=== PATIENT | male | born 1965 | race Caucasian/White ===

== ENCOUNTER 2018-10-02 15:48 | Emergency (ER) | payer BC ==
[2018-10-02 16:29] VITALS: BP 153/93
--- NOTE | 2018-10-02 17:08 | UC ---
Abdominal Pain Male HPI - HPI Summary HPI Summary: 52-year-old male comes in with a chief complaint of left lower quadrant abdominal pain. Patient's had this pain on and off for the last couple of weeks. Most recently in the last day the pain is much more severe and now he is suffering from fevers chills. Normally his bowel movements are larger and than they are today. He tells me he has thin stools. Pain is worse with palpation or movement. No prior abdominal surgical history. No known history of diverticulitis. Denies any pain in the scrotum. - History of Current Complaint Chief Complaint: UCAbdominalPain Stated Complaint: LOWER LT ABD PAIN,FEVER Time Seen by Provider: 10/02/18 16:33 Pain Intensity: 5 - Allergies/Home Medications Allergies/Adverse Reactions: Allergies Allergy/AdvReac Type Severity Reaction Status Date / Time No Known Allergies Allergy Verified 10/02/18 16:19 Home Medications: Home Medications NK [No Home Medications Reported] 10/02/18 [History Confirmed 10/02/18] PMH/Surg Hx/FS Hx/Imm Hx Previously Healthy: Yes - Surgical History Surgical History: None - Family History Known Family History: Positive: Non-Contributory - Social History Alcohol Use: None Substance Use Type: None Smoking Status (MU): Never Smoked Tobacco - Immunization History Most Recent Influenza Vaccination: not this season Review of Systems All Other Systems Reviewed And Are Negative: Yes Constitutional: Positive: Fever, Chills Skin: Positive: Negative Eyes: Positive: Negative ENT: Positive: Negative Respiratory: Positive: Negative Cardiovascular: Positive: Negative Gastrointestinal: Positive: Abdominal Pain Genitourinary: Positive: Negative Motor: Positive: Negative Neurovascular: Positive: Negative Musculoskeletal: Positive: Negative Neurological: Positive: Negative Psychological: Positive: Negative Is Patient Immunocompromised?: No Physical Exam Triage Information Reviewed: Yes Appearance: Well-Nourished, Ill-Appearing - MILD, Pain Distress - MILD Vital Signs: Initial Vital Signs Temp 100 F 10/02/18 16:20 Pulse 128 10/02/18 16:20 Resp 24 10/02/18 16:20 BP 153/93 10/02/18 16:20 Pulse Ox 98 10/02/18 16:20 Vital Signs Reviewed: Yes Eye Exam: Normal Eyes: Positive: Conjunctiva Clear Neck: Positive: Supple Respiratory: Positive: Lungs clear, Normal breath sounds, No respiratory distress Cardiovascular: Positive: Tachycardia Abdomen Description: Positive: Other: - Tender to palpation in the left lower quadrant. Negative: CVA Tenderness (R), CVA Tenderness (L) Bowel Sounds: Positive: Hypoactive Musculoskeletal: Positive: Strength Intact, ROM Intact Neurological: Positive: Alert, Muscle Tone Normal Psychological: Positive: Age Appropriate Behavior Skin Exam: Normal Abd Pain Male Course/Dx - Course Course Of Treatment: I recommended further evaluation in the emergency department. I spoke with a physician assistant athletic trainer at the [place] emergency room. Patient will go by POV with family. - Differential Dx/Clinical Impression Provider Diagnosis: Left lower quadrant abdominal pain, Fever, Tachycardia Discharge - Sign-Out/Discharge Documenting (check all that apply): Patient Departure All imaging exams completed and their final reports reviewed: No Studies - Discharge Plan Condition: Stable Disposition: HOME-RECOMMEND TO ED Patient Education Materials: Fever in Adults (ED), Acute Abdominal Pain (ED), Tachycardia (ED) Referrals: Peter Villasenor MD [Primary Care Provider] - Additional Instructions: GO DIRECTLY TO THE EMERGENCY DEPARTMENT FOR FURTHER EVALUATION. - Billing Disposition and Condition Condition: STABLE Disposition: Home-Recommend to ED
== END 2018-10-02 17:15 | disposition home health service (06) ==
LOC: UCCORT 15:48
DX: R10.32 Left lower quadrant pain (principal); R50.9 Fever, unspecified; R00.0 Tachycardia, unspecified
CPT/HCPCS: 81003; 99202; G0463